=== PATIENT | female | born 1965 | race African-American/Black ===

== ENCOUNTER 2016-08-02 18:44 | Emergency (ER) | payer OTHER ==
[~2016-08-02 18:44] MED LIST: CIP2 PO; CIPRO PO; CYANO1000T PO; FIORICET 50-301 EACH PO; FIORICET PO; FLAG500TAB PO; FLAGYL PO; HARD NAILS PO; KAPIDEX60 MG PO; LOP25 PO; METOPROLOL PO; MOBIC15 MG PO; MULTIVIT/MIN PO; OYST-CAL500 MG PO; PHENTERMINE37.5 MG PO; PRILO PO; TOPAMAX25 PO
== END 2016-08-02 20:11 | disposition home or self-care (01) ==
LOC: ER 18:44
DX: S09.90XA Unspecified injury of head, initial encounter (principal); Z88.8 Allergy status to other drugs, medicaments and biological substances; Z79.899 Other long term (current) drug therapy; W22.8XXA Striking against or struck by other objects, initial encounter
CPT/HCPCS: 70450; 99284; A9270-GY